=== PATIENT | female | born 1940 | race Caucasian/White ===

== ENCOUNTER 2016-08-11 16:35 | Inpatient (IN) | payer MEDICARE ==
[~2016-08-11] VITALS: Ht 167.6 cm; Wt 61.2 kg
[~2016-08-11 16:35] MED LIST: ALDACTONE25 MG PO; AMITRIPTYLINE H50 MG PO; COMBIGAN OPHT DR5 ML EACH EYE; CYMBALTA20 MG PO; DIOVAN80 MG PO; ELIQUIS2.5 MG PO; KLOR-CON M2020 MEQ PO; LASIX20 MG PO; LYRICA50 MG PO; MAGNESIUM GLUC500 M1 PO; MIRALAX17 GM PO; NIFEDIPINE ER30 MG PO; OS-CAL500 MG PO; PERCOCET 10/3251 TA1 PO; PROBIOTIC1 EAC1 PO; PROTONIX40 MG PO; TRAVATAN Z2.5 ML EACH EYE; TYLENOL W/CODEI1 TAB PO; VITAMIN B PO; VITAMIN D250000 UNIT PO; ZOCOR20 MG PO
[2016-08-11 19:36] LABS: BASOPHILS 0.1 % (0.0-2.0); EOSINOPHILS 0.4 % (0-7); HEMATOCRIT 40.1 % (36.0-48.0); HEMOGLOBIN 13.1 g/dL (12-16); IMMATURE GRANULOCYTES 0.5 % (0-5); LYMPHOCYTES 8.5 % (15-50); MCHC 32.7 g/dL (31.0-37.0); MEAN PLATELET VOLUME 8.9 fL (7.4-10.4); MONOCYTES 4.8 % (2-11); NEUTROPHILS 85.7 % (40-80); RBC 4.36 10x6/uL (4.00-5.40); RDW 13.8 % (11.5-14.5); WBC 15.6 10x3/uL (4.8-10.8)
[2016-08-11 19:42] LABS: PLATELET COUNT 236 10x3/uL (130-400)
[2016-08-11 19:43] LABS: CALCIUM 9.2 mg/dL (8.5-10.1); CREATININE - SERUM 0.9 mg/dL (0.6-1.3)
[2016-08-11 20:19] LABS: APPEARANCE CLEAR (CLEAR); BILIRUBIN NEGATIVE (NEGATIVE); COLOR YELLOW (YELLOW); GLUCOSE NEGATIVE (NEGATIVE); KETONE NEGATIVE (NEGATIVE); LEUKOCYTE ESTERASE TRACE (NEGATIVE); NITRITE POSITIVE (NEGATIVE); PROTEIN NEGATIVE (NEGATIVE); UROBILINOGEN NORMAL (NORMAL)
[2016-08-11 20:20] LABS: BACTERIA MODERATE /hpf (NONE SEEN); EPITHELIAL CELLS 0-5 /hpf (0-5); HYALINE CAST 0-5 /lpf (NONE SEEN); RED CELLS - URINE 0-5 /hpf (0-5); WHITE CELLS - URINE 0-5 /hpf (0-5)
--- NOTE | 2016-08-11 23:02 | NUR ---
RECIEVED FORM ER.ALERT,ORIENTED.SKIN WARM DRY RESP EVEN AND UNALBORED. ABD SOFT NONDISTENDED WITH BOWEL SOUNDS PRESENT. CLINTON INTACT TO LEFT SIDE OF HEAD. SLING TO LEFT ARM ON.RADIAL PULSE PRESENT.NO NUMBNESS OR TINGLING NOTED. ABLE TO MOVE FINGERS WITHOUT DIFFICULTY.BILATERAL PPP. NO NUMBNESS OR TINGLING TO LOWER EXTRIMITIES. MOVES FEET AND TOES WITHOUT DIFFICUTLY. COMPLAINTS OF PAIN UPON MOVEMENT TO UPPER AND LOWER EXTRIEITES..SL TO RIGHT FOREARM WITHOUT REDDNESS OR EDEMA.OPEN AREA NOTE TO LEFT LOWER SKIN. NO DRAINAGE NOTED. DRSG INTACT.CL IN REACH
[2016-08-12 00:25] VITALS: BP 101/56; BMI 21.8
--- NOTE | 2016-08-12 02:40 | NUR ---
RESTING QUIETLY. NO DISTRESS NOTED.
--- NOTE | 2016-08-12 04:53 | NUR ---
16 FR OSCAR PLACED AT REQUEST WITH CLEAR YELLOW URINE NOTED.,
[2016-08-12 06:32] LABS: BASOPHILS 0.1 % (0.0-2.0); EOSINOPHILS 0 % (0-7); HEMATOCRIT 37.5 % (36.0-48.0); HEMOGLOBIN 12.4 g/dL (12-16); IMMATURE GRANULOCYTES 0.3 % (0-5); LYMPHOCYTES 9.8 % (15-50); MCH 30.4 pg (26.0-34.0); MCHC 33.1 g/dL (31.0-37.0); MCV 91.9 fL (80.0-100.0); MEAN PLATELET VOLUME 9.2 fL (7.4-10.4); MONOCYTES 8.2 % (2-11); NEUTROPHILS 81.6 % (40-80); PLATELET COUNT 235 10x3/uL (130-400); RBC 4.08 10x6/uL (4.00-5.40); RDW 13.9 % (11.5-14.5)
[2016-08-12 06:43] LABS: WBC 10.7 10x3/uL (4.8-10.8)
[2016-08-12 06:48] LABS: CALCIUM 8.9 mg/dL (8.5-10.1); CARBON DIOXIDE 33.1 mmol/L (21.0-32.0); POTASSIUM - SERUM 3.1 mmol/L (3.5-5.1)
--- NOTE | 2016-08-12 07:53 | NUR ---
PATIENT AWAKE, ALERT, ORIENTED TIMES 3, SHE C/O PAIN "ALL OF LEFT SIDE". PATIENT REQUESTED ICE CHIPS, ICE CHIPS PROVIDED. CLIPS INTACT TO LEFT SIDE OF HEAD. WILL PROVIDE PAIN MEDS SOON ABLE.
--- NOTE | 2016-08-12 10:05 | NUR ---
Patient Name: KENAN DELEON Admission Status: ER Accout number: [id number] Admission Date: 08-11-2016 : 1940 Admission Diagnosis: Attending: HARDEEP Current LOS: 1 Anticipated DC Date: 08-17-2016 Planned Disposition: Home Primary Insurance: [facility] Discharge Planning Comments: CM MET WITH PATIENT REGARDING D/C NEEDS AND PLANS. PATIENT STATED SHE LIVES ALONE AND HAS A FRIEND (JUAN C) THAT CHECKS ON HER DAILY. PATIENTS FRIEND WILL BE THE ONE TO DRIVE HER HOME AT DISCHARGE. PATIENT IS INDEPENDENT WITH HER CARE AND HAS A WALKER, CANE, AND BUILT IN SHOWER CHAIR AT HOME. PATIENT HAS NO STEPS TO ENTER HOME AND 1 FLIGHT OF STAIRS W/RAILS GOING UPSTAIRS TO HER BEDROOM. PATIENTS PCP IS DR. ALVA AND PHARMACY IS [facility]. PATIENT HAS NEVER HAD HOME HEALTH. PATIENT IS OK WITH HOME HEALTH IF NEEDED AT DISCHARGE. CM WILL CONTINUE TO FOLLOW PATIENT WITH D/C NEEDS AND PLANS. PCP DR. ALVA [facility] [phone] JUAN C (FRIEND) [phone] Ladler: Clementina Phan Is the patient Alert and Oriented? Yes 0 * How many steps to enter\exit or inside your home? 1 FLIGHT 0 * PCP DR. ALVA 0 * Pharmacy [facility] 0 * Preadmission Environment Home Alone 0 * ADLs Independent 0 * Equipment Walker 0 * Other Equipment BUILT IN SHOWER CHAIR 0 * List name and contact numbers for known caregivers / representatives who currently or will assist patient after discharge: JUAN C Brandon (FRIEND) [phone] * Community resources currently utilized None 0 * Additional services required to return to the preadmission environment? Yes 0 * Can the patient safely return to the preadmission environment? Yes 0 * Has this patient been hospitalized within the prior 30 days at any hospital? No 0 Grand Total: 0
[2016-08-12 11:02] LABS: BASOPHILS 0.1 % (0.0-2.0); EOSINOPHILS 0 % (0-7); HEMATOCRIT 41.1 % (36.0-48.0); HEMOGLOBIN 13.6 g/dL (12-16); IMMATURE GRANULOCYTES 0.2 % (0-5); LYMPHOCYTES 7.7 % (15-50); MCH 30.5 pg (26.0-34.0); MCHC 33.1 g/dL (31.0-37.0); MCV 92.2 fL (80.0-100.0); MONOCYTES 7.5 % (2-11); NEUTROPHILS 84.5 % (40-80); PLATELET COUNT 189 10x3/uL (130-400); RBC 4.46 10x6/uL (4.00-5.40); WBC 11.9 10x3/uL (4.8-10.8)
[2016-08-12 11:44] VITALS: Ht 167.6 cm; Wt 61.2 kg
--- NOTE | 2016-08-12 12:45 | NUR ---
PLACED POSY ALARM UNDER PATIENT, ASSISTED PATIENT UP IN BED.
--- NOTE | 2016-08-12 12:57 | NUR ---
PATIENT C/O PAIN IN ALL OF LEFT SIDE, RATES IT 03/16. TYELNOL 3 GIVEN PO NOW.
--- NOTE | 2016-08-12 13:00 | NUR ---
ASSISTED PATIENT UP IN BED AND HELPED PLACE HER MORE IN THE CENTER. PATIENT'S FRIEND AT BEDSIDE.
--- NOTE | 2016-08-12 14:21 | NUR ---
PATIENT C/O LEFT SHOULDER PAIN AND REQUESTS SOMETHING MORE FOR PAIN. RATES PAIN 9/10.
--- NOTE | 2016-08-12 15:39 | NUR ---
WOUND CARE CONSULT: NOTED WOUND TO LEFT BUNDY. PT STATES SHE SCRAPED IT DURING A FALL. 3CM X 2.5CM X SCAB. CURRENTLY COVERED WITH TELFA AND SECURED WITH TAPE. RECOMMEND CONTINUING THIS. THERE IS NO DRAINAGE, REDNESS, EDEMA OR ODOR. WILL CONTINUE TO MONITOR.
--- NOTE | 2016-08-12 15:45 | NUR ---
PATIENT BACK FROM CT PELVIS, SHE IS VERY TEARFUL AND SHE SAYS SHE IS SCARED. SAT AND TALKED WITH HER FOR A MINUTE.
--- NOTE | 2016-08-12 16:51 | NUR ---
PATIENT C/O PAIN, RATES IT 8/10, LEFT SHOULDER. RECEIVED TYLENOL #3.
--- NOTE | 2016-08-12 17:20 | NUR ---
PATIENT C/O PAIN, BUT IT IS LESS.
[2016-08-12 19:00] VITALS: BP 127/61
--- NOTE | 2016-08-12 23:26 | NUR ---
PATIENT OBSERVED VERY CONFUSED. OXYGEN NOT IN PLACE. O2 SAT 79% ON ROOM AIR. NASAL CANNULA PUT BACK IN PLACE. O2 SAT 95% AT THIS TIME. REQUESTING THAT HER CHILDREN BE BROUGHT TO HER ROOM IMMEDIATELY. ATTEMPTED TO REORIENT WITHOUT SUCCESS. BED ALARM ON. CALL LIGHT IN REACH.
[2016-08-13] VITALS: BP 165/92
--- NOTE | 2016-08-13 03:49 | NUR ---
PATIENT SUPINE IN BED. HOB 20 DEGREES. AWAKE AND ALERT BUT CONFUSED. PATIENT SEEMS SO BE HALLUCINATING AND IS VERY ANXIOUS. IV TO RIGHT FA S/L WITH NO REDNESS OR SWELLING. SLING TO LEFT SHOULDER. O2 @ 2L VIA NC. OSCAR DRAINING TO GRAVITY. SRX2. BED LOW. CALL LIGHT WITHIN REACH.
[2016-08-13 04:00] VITALS: BP 117/58
[2016-08-13 07:49] VITALS: BP 122/57
--- NOTE | 2016-08-13 07:49 | NUR ---
AWAKE AND ALERT. ORIENTED TO SELF BUT IS TALKING SOMEWHAT CRAZY. REPORTS PAIN AT LEVEL 10. GIVEN ONE TYLENOL #3 FOR SAME. WILL MONITOR. LUNGS ARE CLEAR BILATERALLY, NO COUGH NOTED. SKIN IS INTACT WITHOUT REDNESS EXCEPT WOUND TO LEFT BUNDY WHICH HAS A DRY INTACT DRESSING IN PLACE. OSCAR PATENT WITH CLEAR YELLOW URINE. REPOSITIONED IN BED FOR COMFORT. WILL MONITOR.
[2016-08-13 09:43] LABS: BASOPHILS 0.1 % (0.0-2.0); EOSINOPHILS 1.2 % (0-7); IMMATURE GRANULOCYTES 0.2 % (0-5); LYMPHOCYTES 11.6 % (15-50); MCH 30.3 pg (26.0-34.0); MCHC 33.5 g/dL (31.0-37.0); MCV 90.4 fL (80.0-100.0); MEAN PLATELET VOLUME 8.5 fL (7.4-10.4); MONOCYTES 7.5 % (2-11); NEUTROPHILS 79.4 % (40-80); RDW 13.7 % (11.5-14.5); WBC 9.9 10x3/uL (4.8-10.8)
[2016-08-13 09:44] LABS: HEMATOCRIT 31.9 % (36.0-48.0); HEMOGLOBIN 10.7 g/dL (12-16); PLATELET COUNT 150 10x3/uL (130-400); RBC 3.53 10x6/uL (4.00-5.40)
[2016-08-13 09:51] LABS: CALCIUM 8.7 mg/dL (8.5-10.1); CARBON DIOXIDE 35.8 mmol/L (21.0-32.0); CHLORIDE - SERUM 95 mmol/L (98-107); GLUCOSE 142 mg/dL (74-106); SODIUM 133 mmol/L (136-145)
[2016-08-13 09:59] LABS: CALC OSMOLALITY 269 mosm/kg (275-300); CREATININE - SERUM 0.7 mg/dL (0.6-1.3); UREA NITROGEN 17 mg/dL (7-18); eGFR NON AFRICAN AMERICAN 86 mL/min (90-120)
--- NOTE | 2016-08-13 10:00 | NUR ---
GIVEN BED BATH PER STAFF. ALLOWED LAB TO DRAW BLOOD.
[2016-08-13 10:06] LABS: POTASSIUM - SERUM 2.3 mmol/L (3.5-5.1)
[2016-08-13 12:22] VITALS: BP 125/65
--- NOTE | 2016-08-13 15:59 | NUR ---
REQUESTED AND GIVEN ONE HYDROCODONE PO FOR C/O LEFT HIP PAIN LEVEL 9. WILL MONITOR.
[2016-08-13 16:00] VITALS: BP 122/68
--- NOTE | 2016-08-13 16:36 | NUR ---
DRESSING CHANGED TO LEFT BUNDY AREA. NO SIGNS OF INFECTION NOTED. DENIES NEEDS.
--- NOTE | 2016-08-13 18:28 | NUR ---
ATE ABOUT HALF OF SUPPER. NO C/O AT THIS TIME. DENIES NEEDS. NO CHANGES NOTED.
--- NOTE | 2016-08-13 19:15 | NUR ---
PATIENT IN SEMI FOWLERS POSITION. BROUGHT PATIENT WATER PER HER REQUEST.
[2016-08-13 20:43] VITALS: BP 114/61
--- NOTE | 2016-08-14 06:00 | NUR ---
ROUTINE MEDS GIVEN PER MAR, TAYLER WELL, LAB IN ROOM , CL IN REACH
[2016-08-14 06:19] LABS: BASOPHILS 0.1 % (0.0-2.0); EOSINOPHILS 2.2 % (0-7); HEMATOCRIT 31.8 % (36.0-48.0); HEMOGLOBIN 10.7 g/dL (12-16); IMMATURE GRANULOCYTES 0.1 % (0-5); LYMPHOCYTES 18.2 % (15-50); MCH 30.5 pg (26.0-34.0); MCHC 33.6 g/dL (31.0-37.0); MCV 90.6 fL (80.0-100.0); MEAN PLATELET VOLUME 8.7 fL (7.4-10.4); MONOCYTES 10.5 % (2-11); NEUTROPHILS 68.9 % (40-80); PLATELET COUNT 158 10x3/uL (130-400); RBC 3.51 10x6/uL (4.00-5.40); RDW 13.7 % (11.5-14.5)
[2016-08-14 06:28] LABS: CALCIUM 8.6 mg/dL (8.5-10.1); CARBON DIOXIDE 34.8 mmol/L (21.0-32.0); CHLORIDE - SERUM 96 mmol/L (98-107); GLUCOSE 114 mg/dL (74-106); SODIUM 135 mmol/L (136-145)
[2016-08-14 06:29] LABS: CALC OSMOLALITY 269 mosm/kg (275-300); CREATININE - SERUM 0.5 mg/dL (0.6-1.3); UREA NITROGEN 9 mg/dL (7-18); eGFR NON AFRICAN AMERICAN > 90 mL/min (90-120)
--- NOTE | 2016-08-14 07:53 | NUR ---
AWAKE AND ALERT. ORIENTED X3. NO C/O AT THIS TIME. DENIES NEEDS. LUNGS ARE CLEAR BILATERALLY, NO COUGH NOTED. SKIN IS INTACT WITHOUT REDNESS. OSCAR PATENT WITH CLEAR YELLOW URINE. IV TO RIGHT FOREARM PATNET WITHOUT REDNESS AT INSERTION SITE. DENIES NEEDS
[2016-08-14 08:04] VITALS: BP 122/55
--- NOTE | 2016-08-14 09:20 | NUR ---
ATE ALMOST ALL OF BREAKFAST. REQUESTED AND GIVEN ONE HYDROCODONE PO FOR C/O LEFT SHOULDER PAIN LEVEL 9. WILL MONITOR.
[2016-08-14 11:56] VITALS: BP 113/55
--- NOTE | 2016-08-14 13:24 | NUR ---
SPOKE WITH DR. JOHNS RE HEADACHE. ONE TIME ORDER RECEIVED FOR DEMEROL. PATIENT C/O HEADACHE LEVEL 10. GIVEN MEDS PER ORDERS. WILL MONITOR.
[2016-08-14 15:59] VITALS: BP 114/46
[2016-08-14 19:00] VITALS: BP 124/50
--- NOTE | 2016-08-14 19:07 | NUR ---
ATE MOST OF SUPPER. FAMILY AT BEDSIDE. NO CHANGES NOTED. DENIES NEEDS.
--- NOTE | 2016-08-15 02:30 | NUR ---
PT IN BED WITH NO NEEDS AT THIS TIME. SCD'S ON. O2 @ 2 PER NASAL CANNULA. LEFT FOREARM IV PATENT AND FLUIDS ARE RUNNING PER ORDER. LEFT HUMERUS IS FRACTURED. RADIAL PULSE PRESENT. SIDE RAILS ARE UP X 2. BED IS LOW. CALL LIGHT IS IN REACH.
[2016-08-15 04:00] VITALS: BP 147/38
[2016-08-15 05:02] LABS: BASOPHILS 0.1 % (0.0-2.0); HEMATOCRIT 32.8 % (36.0-48.0); HEMOGLOBIN 10.9 g/dL (12-16); IMMATURE GRANULOCYTES 0.3 % (0-5); LYMPHOCYTES 16.5 % (15-50); MCH 30.2 pg (26.0-34.0); MCHC 33.2 g/dL (31.0-37.0); MCV 90.9 fL (80.0-100.0); MEAN PLATELET VOLUME 9.2 fL (7.4-10.4); MONOCYTES 11.6 % (2-11); NEUTROPHILS 67.5 % (40-80); PLATELET COUNT 184 10x3/uL (130-400); RBC 3.61 10x6/uL (4.00-5.40); RDW 13.5 % (11.5-14.5); WBC 7.7 10x3/uL (4.8-10.8)
[2016-08-15 05:10] LABS: CALC OSMOLALITY 268 mosm/kg (275-300); CALCIUM 8.8 mg/dL (8.5-10.1); CARBON DIOXIDE 34.8 mmol/L (21.0-32.0); CHLORIDE - SERUM 97 mmol/L (98-107); CREATININE - SERUM 0.5 mg/dL (0.6-1.3); GLUCOSE 112 mg/dL (74-106); POTASSIUM - SERUM 3.1 mmol/L (3.5-5.1); SODIUM 135 mmol/L (136-145); UREA NITROGEN 8 mg/dL (7-18); eGFR NON AFRICAN AMERICAN > 90 mL/min (90-120)
[2016-08-15 08:07] VITALS: BP 163/73
--- NOTE | 2016-08-15 09:00 | NUR ---
ASSESSMENT PER FLOW SHEET.PT WITHOUT DISTRESS.SLING IN PLACE TO LEFT ARM.DENIES NEEDS.NPO FOR SURGERY TODAY ORDERED.FALL PRECAUTIONS IN PLACE.
[2016-08-15 12:09] VITALS: BP 139/83
--- NOTE | 2016-08-15 14:38 | NUR ---
NUTRITION MONITORING & EVAL CHART REVIEWED. PT CURRENTLY NPO FOR SURGERY. WILL PROVIDE DIET WHEN RESUMED, MONITOR PO INTAKE, PT PROGRESS. RD FOLLOWING
--- NOTE | 2016-08-15 16:31 | NUR ---
TO OR VIA BED
[2016-08-15 16:37] VITALS: BP 160/70
--- NOTE | 2016-08-15 18:08 | NUR ---
1715 LEFT ARM RED AND BLUE BRUISING NOTED, LEFT LOWER LEG WITH BANDAGE, ROM.
--- NOTE | 2016-08-15 18:39 | NUR ---
CAME WITH OSCAR CATHETER FROM FLOOR. ANESTHESIA CLAIMED WHAT WAS IN THE BAG. 1000ML
[2016-08-15 19:02] VITALS: BP 152/76
--- NOTE | 2016-08-15 19:04 | NUR ---
BACK FROM OR VIA BED,WITHOUT DISTRESS.DRESSING LEFT SHOULDER CLEAN,DRY AND INTACT.
[2016-08-16] VITALS: BP 138/75
--- NOTE | 2016-08-16 02:10 | NUR ---
PT IN BED WITH NO NEEDS. IV TO LEFT FOREARM PATENT AND FLUIDS ARE RUNNING PER ORDER. DRESSING TO LEFT ARM C/D/I. SLING ON. SCD'S ON. O2 @ 2 PER NASAL CANNULA. RADIAL PULSE PRESENT. SIDE RAILS ARE UP X 2. BED IS LOW. CALL LIGHT IS IN REACH.
[2016-08-16 04:00] VITALS: BP 163/86
[2016-08-16 06:36] LABS: BASOPHILS 0.2 % (0.0-2.0); EOSINOPHILS 1.5 % (0-7); HEMATOCRIT 32.2 % (36.0-48.0); HEMOGLOBIN 10.7 g/dL (12-16); IMMATURE GRANULOCYTES 0.2 % (0-5); LYMPHOCYTES 10.8 % (15-50); MCH 29.8 pg (26.0-34.0); MCHC 33.2 g/dL (31.0-37.0); MCV 89.7 fL (80.0-100.0); MEAN PLATELET VOLUME 8.7 fL (7.4-10.4); MONOCYTES 8.5 % (2-11); NEUTROPHILS 78.8 % (40-80); PLATELET COUNT 180 10x3/uL (130-400); RBC 3.59 10x6/uL (4.00-5.40); RDW 13.4 % (11.5-14.5); WBC 9.2 10x3/uL (4.8-10.8)
[2016-08-16 06:52] LABS: CALC OSMOLALITY 272 mosm/kg (275-300); CALCIUM 8.4 mg/dL (8.5-10.1); CARBON DIOXIDE 25.9 mmol/L (21.0-32.0); CHLORIDE - SERUM 101 mmol/L (98-107); CREATININE - SERUM 0.5 mg/dL (0.6-1.3); GLUCOSE 89 mg/dL (74-106); POTASSIUM - SERUM 3.1 mmol/L (3.5-5.1); SODIUM 138 mmol/L (136-145); UREA NITROGEN 8 mg/dL (7-18); eGFR NON AFRICAN AMERICAN > 90 mL/min (90-120)
[2016-08-16 08:28] VITALS: BP 149/92
[2016-08-16 11:49] VITALS: BP 117/72
[2016-08-16 15:45] VITALS: BP 165/91
[2016-08-16 19:00] VITALS: BP 176/80
--- NOTE | 2016-08-16 19:45 | NUR ---
PATIENT RESTING IN BED. NO SIGNS OF DISTRESS NOTED. FAMILY PRESENT. DENIES ANY NEEDS AT THIS TIME. BED LOW. CALL LIGHT IN REACH.
[2016-08-17] VITALS: BP 153/70
[2016-08-17 04:00] VITALS: BP 150/81
--- NOTE | 2016-08-17 04:39 | NUR ---
PT IS IN BED WITH NO DISTRESS. SIDE RAILS ARE UP X 2. BED IS LOW. CALL LIGHT IS IN REACH.
[2016-08-17 05:51] LABS: BASOPHILS 0.2 % (0.0-2.0); EOSINOPHILS 3.5 % (0-7); HEMATOCRIT 31.2 % (36.0-48.0); HEMOGLOBIN 10.6 g/dL (12-16); IMMATURE GRANULOCYTES 0.2 % (0-5); LYMPHOCYTES 16.8 % (15-50); MCH 30.3 pg (26.0-34.0); MCV 89.1 fL (80.0-100.0); MEAN PLATELET VOLUME 9.1 fL (7.4-10.4); MONOCYTES 11.2 % (2-11); NEUTROPHILS 68.1 % (40-80); PLATELET COUNT 185 10x3/uL (130-400); RDW 13.8 % (11.5-14.5); WBC 8.1 10x3/uL (4.8-10.8)
[2016-08-17 06:08] LABS: CALC OSMOLALITY 270 mosm/kg (275-300); CHLORIDE - SERUM 99 mmol/L (98-107); CREATININE - SERUM 0.4 mg/dL (0.6-1.3); GLUCOSE 117 mg/dL (74-106); POTASSIUM - SERUM 3.4 mmol/L (3.5-5.1); SODIUM 136 mmol/L (136-145); UREA NITROGEN 8 mg/dL (7-18); eGFR NON AFRICAN AMERICAN > 90 mL/min (90-120)
--- NOTE | 2016-08-17 08:26 | NUR ---
PT SEEN AND ASSESSED. COMPLAINTS OF PAIN GENERALIZED-TYL #3 GIVEN PER REQUEST. LEFT ARM IN SLING WITH DRESSING CLEAN DRY AND INTACT. FINGERS WARM AND PINK. CLINTON NOTED TO LEFT SIDE OF HEAD INTACT AND NO DRAINAGE NOTED. OSCAR DRAINING YELLOW URINE-NO SKIN BREAKDOWN NOTED BUT WILL TURN OFTEN. SCD ON BILAT WITH NIRMALA MAT ALARM ON FOR SAFETY. CALL LIGHT IN PLACE
[2016-08-17 08:48] VITALS: BP 155/91
--- NOTE | 2016-08-17 10:23 | NUR ---
REASSESSMENT: WOUND/SKIN TEAR TO LEFT BUNDY IS IMPROVING. MEASUREMENTS: 2.5CM X 2CM X SCAB NO DRAINAGE, ODOR OR EDEMA NOTED. WILL MONITOR NEEDED.
[2016-08-17] MEDS ORDERED: ELIQUIS2.5 MG PO (12:38)
--- NOTE | 2016-08-17 13:52 | NUR ---
PATIENT SEEN AT BEDSIDE FOR THERAPEUTIC EXERCISE AND BED MOBILITY. PATIENT ABLE TO PERFORM SUPINE TO SIT WITH MOD A. PATIENT IS NWB ON L LE BUT STOOD AT BEDSIDE WITH MOD A X 2, BEARING ALL WEIGHT ON HER RIGHT SIDE. PATIENT HAD GOOD BALANCE. PATIENT IS NOT ABLE TO AMBULATE AT THIS TIME DUE TO HER BEING NWB ON L LE, FROM PELVIC FX, AND ON L UE FROM RECENT HUMERAL ORIF. PATIENT ABLE TO PERFORM PENDULUM EXERCISES IN STANDING AND SITTING. PATIENT WILL NEED REHAB PLACEMENT TO INCREASE STRENGTH AND INDEPENDENCE IN TRANSFERS. PATIENT'S REHAB POTENTIAL IS GOOD. ROSIO COLMENARES, PT, DPT
[2016-08-17 13:55] VITALS: BP 120/58
[2016-08-17 16:05] VITALS: BP 151/87
--- NOTE | 2016-08-17 17:43 | OP ---
PATIENT NAME: KENAN DELEON MEDICAL RECORD: [id number] :38 LOCATION:D.MS [id number] ADMISSION DATE:08/11/16 SURGEON: JJ LLAMAS MD DATE OF OPERATION: 08/15/2016 PREOPERATIVE DIAGNOSIS: Proximal humerus fracture, left shoulder. POSTOPERATIVE DIAGNOSIS: Proximal humerus fracture, left shoulder. PROCEDURE: Open reduction internal fixation of left proximal humerus fracture. SURGEON: Jj Llamas MD ANESTHESIA: General. INTRAOPERATIVE COMPLICATIONS: None. SUMMARY OF PATHOLOGIC FINDINGS: The patient was found to have a displaced proximal humerus at the surgical neck of the humerus. This was fixed with the AxSOS 3 plating system from [employer]. OPERATIVE SUMMARY IN DETAIL: After obtaining the appropriate preoperative orthopedic surgery consent as well as anesthetic consultation, evaluation and clearance, the patient was brought to the operating room and placed on the operating table in supine position. After general endotracheal anesthesia was administered, the patient was placed in the beach chair position. All pressure points were well padded. She was held firmly to the operating table using the vacuum pack suction system. Left upper extremity and shoulder were then prepped and draped in a routine sterile fashion. The arm was held to [employer] arm holding device. Deltopectoral incision was taken down to the level of the fracture. Fracture was reduced under fluoroscopic guidance and then the plate as described, 3-hole humeral plate, was placed in a serial and sequential drill and fill fashion with a combination of both compression screws as well as locking screws. Realtime fluoroscopy was used to determine if all screws were in appropriate position and they were indeed. Having completed this, the wound was irrigated and the incision was closed with #1 Vicryl followed by 2-0 Vicryl and skin aubrey. Sterile dressings were applied. The patient was awakened, taken to recovery room in stable condition. All final needle and sponge counts were correct. TRANSINT:[id number] Voice Confirmation ID: [id number] DOCUMENT ID: [id number] JJ LLAMAS MD at 1743 CC: [id number] DICTATION DATE: 08/15/161825 RESEARCH RN SPEC: [id number] ADM IN [place] [id number] [place] [address]
[2016-08-17 21:11] VITALS: BP 122/62
--- NOTE | 2016-08-18 02:20 | NUR ---
RN NOTE: PT SLEEPING IN SEMI PINA'S POSITION WITH UNLABORED BREATHING. LEFT ARM IN SLING. SCD'S IN USE ON BLE. CALL LIGHT WITHIN REACH.
[2016-08-18 04:54] VITALS: BP 144/81
[2016-08-18 05:44] LABS: HEMATOCRIT 31.2 % (36.0-48.0); HEMOGLOBIN 10.3 g/dL (12-16)
--- NOTE | 2016-08-18 07:52 | NUR ---
RESTING WITHOUT DISTRESS.CALL LIGHT IN REACH
--- NOTE | 2016-08-18 08:00 | NUR ---
AWAKE AND ALERT ORIENTED X 3 LUNGS CLEAR BILAT DAY 3 POD AFER ORIF OF LEFT HUMEROUS ALSO NOTED TO HAVE NON SURGICAL PELVIC FRACTURE AND REMAINS NON WT BEARING AT THIS TIME. PT SITTING PT UP TO SIDE OF BED HOWEVER PT HAS NO ORDER FOR OOB. OSCAR PATENT TO YELLOW URINE PER GRAVITY FLOW. DRESSING NOTED TO LLL WILL MONITOR
--- NOTE | 2016-08-18 09:44 | NUR ---
CM REASSESSMENT NOTE: PATIENT REFERRAL TO [facility]. MATTHEW WAS SENT AND NON-PASRR WAS RECEIVED. COPY WAS FAXED TO [facility] AT [facility]. WAITING ON INSURANCE APPROVAL FROM [facility].
[2016-08-18 10:05] VITALS: BP 109/63
[2016-08-18 13:08] VITALS: BP 140/80
--- NOTE | 2016-08-18 16:20 | NUR ---
CM REASSESSMENT NOTE: PATIENT DISCHARGING TODAY TO [facility]BULANCE TO A SKILLED BED.
--- NOTE | 2016-08-18 17:38 | NUR ---
PT DISCHARGED VIA AMBULANCE AT THIS TIME DRESSING CHANGED PER ORDER TO LLE WELL CLINTON REMOVED X 4 TO SCALP HAS CLEAN DRESSING WITH AG APPLIED TO SURGICAL SITE TO LEFT SHOULDER. OSCAR REMAINS PATENT TO YELLOW URINE. NO ACUTE DISTRESS HAD TYLENOL #3 FOR PAIN CONTROL PRIOR TO DISCHARGE. REPORT CALLED TO [facility] SPOKE WITH MONIQUE
--- NOTE | 2016-08-19 11:11 | CN ---
PATIENT NAME:KENAN DELEON MEDICAL RECORD: [id number] : 38 LOCATION:D.MS [facility]2237 ADMIT DATE: 08/11/16 ACCOUNT: [id number] CONSULTING PHYSICIAN: SUKUMAR MASON MD REFERRING PHYSICIAN: YVONNE ALVA MD DATE OF CONSULTATION: 08/13/2016 Cardiology Consultation DIAGNOSES: 1. Preoperative evaluation, leg fracture. 2. Hypertension. 3. Palpitations. HISTORY OF PRESENT ILLNESS: Mrs. Deleon is only followed by us for hypertension and palpitations. She had an echocardiogram within the last year that is normal. She has had no signs or symptoms of ischemic heart disease. From the standpoint of hypertension, she is on Diovan and Lasix. Her palpitations have resolved. She as well as has hyperlipidemia, for which she is on Zocor. She has chronic lower extremity swelling, which she is on Lasix and Zaroxolyn; this is felt to be secondary to venous insufficiency and not from a cardiac etiology. Last echo showed no significant valvular heart disease and no pulmonary hypertension. PHYSICAL EXAMINATION: GENERAL APPEARANCE: Well-nourished, well-developed, appears stated age. Level of distress, comfortable. PSYCHIATRIC: Mental status, alert, normal affect. Orientation, oriented to time, place and person. EYES: Lids and conjunctiva, noninjected. No discharge, no pallor. ENT: Lips, teeth, gums, normal dentition. Oropharynx, no cyanosis, no pallor. NECK: Carotid arteries, bilateral normal upstroke, no bruits, no thrills. JUGULAR VEINS: No jugular venous pressure or distention. CERVICAL LYMPH NODES: Nontender, nonenlarged. THYROID: Not enlarged. Nontender. No nodules. LUNGS: Respiratory effort, unlabored. CHEST: Normal curvature. No thoracic deformity. No chest wall tenderness. Percussion, resonant. Auscultation, clear. No wheezes, no rales, no rhonchi. CARDIOVASCULAR: Precordial exam, nondisplaced. No heaves or pericardial thrills. Rate and rhythm, regular. Heart sounds, normal S1, normal S2. No S3, no gallop, no rub. Systolic murmur, not heard. Diastolic murmur, not heard. EXTREMITIES: No cyanosis, no edema. Peripheral pulses, full and equal in all extremities, except as noted. No bruits appreciated. ABDOMEN: Soft, nondistended. Normal aorta. No bruit. Nontender. No masses. Liver, nontender, no hepatomegaly. Spleen, nontender, no splenomegaly. MUSCULOSKELETAL: No joint tenderness. No joint swelling. No erythema. NEUROLOGICAL: Normal gait, normal strength, normal tone. SKIN: Warm and dry. REVIEW OF SYSTEMS: The patient reports easy bruising but reports no swollen glands. The patient reports no fever, no night sweats, no significant weight gain, no significant weight loss. No significant exercise tolerance. The patient reports no dry eyes, no irritation, no vision change. Patient reports no difficulty hearing and no ear pain. Patient reports no frequent nose bleeds or nose and sinus problems. Patient reports on arm pain on exertion. No CONSULT REPORT [id number] KENAN DELEON shortness of breath while lying down. No history of heart murmur. Patient reports no cough, no wheezing or coughing up blood. Patient reports no abdominal pain, no vomiting. Normal appetite. No diarrhea and not vomiting blood. No nausea and no constipation. Patient reports no incontinence. No difficulty urinating. No hematuria. No increased frequency. Patient reports no muscle aches. No weakness, no arthralgias, no back pain. No swelling of the extremities. Patient reports no abnormal mole, no jaundice, no rashes. Reports no loss of consciousness. No weakness and no numbness. No seizures, dizziness, or headaches. The patient reports no depression, no sleep disturbance, feeling safe in a relationship and no alcohol abuse. Patient reports on fatigue. Reports no runny nose or sinus pressure. No itching, no hives, and no frequent sneezing. OVERALL IMPRESSION: 1. Hypertension, well controlled on Diovan. 2. Lower extremity edema, chronic, not cardiac in etiology treatment with Lasix and Zaroxolyn. At this time, she is low risk from a cardiovascular standpoint for operative repair. No other cardiovascular workup or treatment is necessary. TRANSINT:[id number] Voice Confirmation ID: [id number] DOCUMENT ID: [id number] SUKUMAR MASON MD at 1111 CC: [id number] DICTATION DATE: 08/13/16 1110 GARD[place] FLORIST: 08/13/16 1133 DIS IN 08/18/16 [facility] [address] [place] [address]
== END 2016-08-18 17:53 | DRG 493 ==
LOC: D.ER 16:35 → D.MS 19:12
PROVIDERS: Emergency Medicine Emergency Medical Services; Orthopaedic Surgery; ADMIT Family Medicine
PROC: 0HQ0XZZ Repair Scalp Skin, External Approach (ICD-10-PCS; principal; 2016-08-11)
PROC: 0PSD04Z Reposition Left Humeral Head with Internal Fixation Device, Open Approach (ICD-10-PCS; 2016-08-15)
DX: S42.292A Other displaced fracture of upper end of left humerus, initial encounter for closed fracture (principal); S32.592A Other specified fracture of left pubis, initial encounter for closed fracture; N39.0 Urinary tract infection, site not specified; F05 Delirium due to known physiological condition; I48.91 Unspecified atrial fibrillation; I50.9 Heart failure, unspecified; R00.2 Palpitations; S01.01XA Laceration without foreign body of scalp, initial encounter; I95.1 Orthostatic hypotension; W19.XXXA Unspecified fall, initial encounter; E86.0 Dehydration; I10 Essential (primary) hypertension; E78.5 Hyperlipidemia, unspecified; R60.9 Edema, unspecified

== ENCOUNTER 2016-12-29 12:43 | Emergency (ER) | payer MEDICARE ==
[2016-08-12 11:44] VITALS: BMI 21.7
[2016-12-29 14:32] LABS: BASOPHILS 0.6 % (0-2); EOSINOPHILS 3.7 % (0-7); HEMATOCRIT 40.4 % (36.0-48.0); IMMATURE GRANULOCYTES 0.2 % (0-5); MCH 30.1 pg (26.0-34.0); MCHC 32.2 g/dL (31.0-37.0); MCV 93.5 fL (80.0-100.0); MEAN PLATELET VOLUME 8.9 fL (7.4-10.4); MONOCYTES 7.2 % (2-11); NEUTROPHILS 54.3 % (40-80); PLATELET COUNT 182 10x3/uL (130-400); RBC 4.32 10x6/uL (4.00-5.40); RDW 13.3 % (11.5-14.5); WBC 5.1 10x3/uL (4.8-10.8)
[2016-12-29 14:43] LABS: ALBUMIN 3.6 g/dL (3.4-5.0); ALKALINE PHOSPHATASE 114 U/L (46-116); ALT (SGPT) 32 U/L (10-68); BILIRUBIN - TOTAL 0.38 mg/dL (0.2-1.3); CALC OSMOLALITY 282 mosm/kg (275-300); CALCIUM 9.2 mg/dL (8.5-10.1); CARBON DIOXIDE 33.9 mmol/L (21.0-32.0); CHLORIDE - SERUM 103 mmol/L (98-107); CREATININE - SERUM 0.7 mg/dL (0.6-1.3); GLUCOSE 88 mg/dL (74-106); POTASSIUM - SERUM 3.3 mmol/L (3.5-5.1); PROTEIN - SERUM 7.4 g/dL (6.4-8.2); SODIUM 142 mmol/L (136-145); UREA NITROGEN 14 mg/dL (7-18); eGFR NON AFRICAN AMERICAN 86 mL/min (90-120)
== END 2016-12-29 14:57 | disposition home or self-care (01) ==
LOC: D.ER 12:43
PROVIDERS: Emergency Medicine; Nurse Practitioner Family
DX: S16.1XXA Strain of muscle, fascia and tendon at neck level, initial encounter (principal); V89.2XXA Person injured in unspecified motor-vehicle accident, traffic, initial encounter; Y93.89 Activity, other specified; Y92.89 Other specified places as the place of occurrence of the external cause; S29.012A Strain of muscle and tendon of back wall of thorax, initial encounter; M25.512 Pain in left shoulder; M62.830 Muscle spasm of back

== ENCOUNTER → 2017-10-16 11:49 | Outpatient (CLI) | payer MEDICARE ==
[2016-08-12 11:44] VITALS: BMI 21.7
== END | disposition home or self-care (01) ==
LOC: D.CT 11:30
DX: I65.23 Occlusion and stenosis of bilateral carotid arteries (principal)

== ENCOUNTER → 2018-04-05 22:29 | Outpatient (CLI) | payer MEDICARE ==
[2016-08-12 11:44] VITALS: BMI 21.7
== END | disposition home or self-care (01) ==
LOC: D.MAMMO 15:45
DX: Z12.31 Encounter for screening mammogram for malignant neoplasm of breast (principal)

== ENCOUNTER 2018-05-24 06:30 | Day surgery (SDC) | payer MEDICARE ==
[2018-05-23 09:36] LABS: HEMATOCRIT 43.3 % (36.0-48.0); HEMOGLOBIN 14.3 g/dL (12-16); MCH 30.4 pg (26.0-34.0); MCV 92.1 fL (80.0-100.0); MEAN PLATELET VOLUME 8.9 fL (7.4-10.4); RBC 4.7 10x6/uL (4.00-5.40); RDW 14.4 % (11.5-14.5); WBC 7.3 10x3/uL (4.8-10.8)
[2018-05-23 09:43] LABS: CALC OSMOLALITY 280 mosm/kg (275-300); CARBON DIOXIDE 31.9 mmol/L (21.0-32.0); CHLORIDE - SERUM 101 mmol/L (98-107); CREATININE - SERUM 0.7 mg/dL (0.6-1.3); GLUCOSE 98 mg/dL (74-106); POTASSIUM - SERUM 3.4 mmol/L (3.5-5.1); SODIUM 140 mmol/L (136-145); UREA NITROGEN 19 mg/dL (7-18); eGFR NON AFRICAN AMERICAN 85 mL/min (90-120)
[~2018-05-24] VITALS: Ht 167.6 cm; Wt 64.9 kg
--- NOTE | ~2018-05-24 | OP ---
PATIENT NAME: KENAN DELEON MEDICAL RECORD: [id number] :38 LOCATION:D.OPS ADMISSION DATE: SURGEON: JJ LLAMAS MD DATE OF OPERATION: 05/24/2018 PREOPERATIVE DIAGNOSIS: Painful hardware of the left shoulder. POSTOPERATIVE DIAGNOSIS: Painful hardware of the left shoulder. PROCEDURE: Removal of painful hardware of the left shoulder. SURGEON: Jj Llamas MD ANESTHESIA: General. INTRAOPERATIVE COMPLICATIONS: None. SUMMARY OF PATHOLOGIC FINDINGS: Essentially no pathologic findings were noted except for scarring of the subdeltoid bursa to the plate. OPERATIVE SUMMARY IN DETAIL: After obtaining the appropriate preoperative orthopedic surgery consent as well as anesthetic consultation, evaluation and clearance, the patient was brought to the operating room and placed on the operating table in supine position. After general laryngeal mask airway was administered, the patient was placed in the beach chair position. All pressure points were well padded. She was held firmly to the operating table using the vacuum pack suction system. Left upper extremity and shoulder were then prepped and draped in routine sterile fashion. Deltopectoral incision was recreated, taken down to the level of the cephalic vein, which was identified and retracted. Careful dissection was required to release the deltoid off of the plate. The plate was exposed in its entirety. Serial and sequential screw removal followed by plate removal was done with the aid of fluoroscopy. Having completed this, final x-rays were taken showing the hardware removed and sent to radiology for final review. The wound was copiously irrigated and closed with #1 Vicryl, 2-0 Vicryl, and skin aubrey. Sterile dressings were applied. The patient was awakened and taken to recovery room in stable condition. All final needle and sponge counts were correct. TRANSINT:[id number] Voice Confirmation ID: [id number] DOCUMENT ID: [id number] JJ LLAMAS MD at 1351 CC: [id number] DICTATION DATE: 05/24/18 1039 HYDRATOR: 05/24/18 1128 [facility] 05/24/18 [place] [address]
[~2018-05-24 06:30] MED LIST changes: +LUMIGAN 0.01%2.5 ML EACH EYE; +NEURONTIN 300300 MG PO; +PEPCID AC20 MG PO
[2018-05-24] MEDS ORDERED: METOPROLOL TART25 MG PO ×2 (06:55→06:56)
[2018-05-24] MEDS ORDERED: ZOLOFT100 MG PO (06:57)
[2018-05-24] MEDS ORDERED: FLUTICASONE PRO16 GM NASAL (06:57)
[2018-05-24] MEDS ORDERED: ABILIFY2 MG PO (06:58)
[2018-05-24 07:07] VITALS: BP 153/75; Ht 167.6 cm; Wt 64.9 kg
[2018-05-24] MEDS ORDERED: NORCO 10-325 TA1 TAB PO (09:23)
== END 2018-05-24 11:39 | disposition home or self-care (01) ==
LOC: D.OPS 06:30 → D.PAN 08:30 → D.OPS 11:15 → D.PAN 11:15 → D.OPS 11:39
PROVIDERS: Anesthesiology
DX: T84.84XA Pain due to internal orthopedic prosthetic devices, implants and grafts, initial encounter (principal)

== ENCOUNTER 2018-12-19 21:56 | Emergency (ER) | payer MEDICARE ==
[~2018-12-19] VITALS: Ht 167.6 cm; Wt 65.9 kg
[~2018-12-19 21:56] MED LIST changes: +ABILIFY2 MG PO; +FLUTICASONE PRO16 GM NASAL; +METOPROLOL TART25 MG PO; +NORCO 10-325 TA1 TAB PO; +ZOLOFT100 MG PO
[2018-12-19 22:09] VITALS: Ht 167.6 cm; Wt 65.9 kg
[2018-12-19 23:04] LABS: BASOPHILS 0.3 % (0-2); EOSINOPHILS 1.9 % (0-7); HEMATOCRIT 39.9 % (36.0-48.0); IMMATURE GRANULOCYTES 0.4 % (0-5); LYMPHOCYTES 20.8 % (15-50); MCH 30.4 pg (26.0-34.0); MCHC 32.6 g/dL (31.0-37.0); MCV 93.2 fL (80.0-100.0); MEAN PLATELET VOLUME 8.8 fL (7.4-10.4); MONOCYTES 7.3 % (2-11); NEUTROPHILS 69.3 % (40-80); PLATELET COUNT 178 10x3/uL (130-400); RBC 4.28 10x6/uL (4.00-5.40); RDW 14.7 % (11.5-14.5); WBC 7.3 10x3/uL (4.8-10.8)
[2018-12-19 23:15] LABS: APTT 29.2 SECONDS (22.8-39.4); INR 0.94 (0.85-1.17); PROTIME 12.1 SECONDS (11.6-15.0)
[2018-12-19 23:19] LABS: ALBUMIN 3.4 g/dL (3.4-5.0); ALKALINE PHOSPHATASE 87 U/L (46-116); ALT (SGPT) 34 U/L (10-68); BILIRUBIN - TOTAL 0.27 mg/dL (0.2-1.3); CALC OSMOLALITY 280 mosm/kg (275-300); CALCIUM 8.9 mg/dL (8.5-10.1); CARBON DIOXIDE 30.2 mmol/L (21.0-32.0); CHLORIDE - SERUM 101 mmol/L (98-107); CREATININE - SERUM 0.6 mg/dL (0.6-1.3); GLUCOSE 106 mg/dL (74-106); POTASSIUM - SERUM 3.4 mmol/L (3.5-5.1); PROTEIN - SERUM 7.1 g/dL (6.4-8.2); SODIUM 140 mmol/L (136-145); UREA NITROGEN 18 mg/dL (7-18); eGFR NON AFRICAN AMERICAN > 90 mL/min (90-120)
[2018-12-19 23:35] LABS: CKMB 2.8 U/L (0.0-3.6); CREATINE KINASE 139 UL (21-215); MAGNESIUM - SERUM 2.3 mg/dL (1.8-2.4)
[2018-12-19 23:36] LABS: TROPONIN-I < 0.017 ng/mL (0.000-0.060)
[2018-12-20] MEDS ORDERED: ROBAXIN500 MG PO (00:29)
[2018-12-20] MEDS ORDERED: EC-NAPROSYN500 MG PO (00:29)
[2018-12-20 00:47] VITALS: BP 169/87
== END 2018-12-20 00:46 | disposition home or self-care (01) ==
LOC: D.ER 21:56
PROVIDERS: Family Medicine
DX: S01.81XA Laceration without foreign body of other part of head, initial encounter (principal); W18.30XA Fall on same level, unspecified, initial encounter; Y93.89 Activity, other specified; Y92.019 Unspecified place in single-family (private) house as the place of occurrence of the external cause

== ENCOUNTER 2019-01-07 05:03 | Observation (INO) | payer MEDICARE | END 2019-01-08 17:42 | disposition home health service (06) | LOC: D.ER 05:03 → D.M3 09:44 | PROVIDERS: ADMIT Family Medicine | DX: N39.0 Urinary tract infection, site not specified (principal); I11.0 Hypertensive heart disease with heart failure; I50.9 Heart failure, unspecified; E87.6 Hypokalemia; F19.939 Other psychoactive substance use, unspecified with withdrawal, unspecified ==

== ENCOUNTER 2019-01-10 10:47 | Observation (INO) | payer MEDICARE ==
[~2019-01-10] VITALS: Ht 167.6 cm; Wt 65.9 kg
--- NOTE | ~2019-01-10 | HEMODYNAMI ---
PATIENT:KENAN DELEON MEDICAL RECORD: [id number] : 36 LOCATION[id number] ADMISSION DATE: 01/10/19 Generatedon:01/11/201910:01 Patient name: KENAN DELEON Patient #: [id number] SSN: : 1940 Date of study: 01/11/2019 Page: Of Hemodynamic Procedure Report Patient Data Patient Demographics Procedure consent was obtained First Name: KENAN Gender: Female Last Name: ADRIENNE : 1940 [facility] Initial: KARINA Age: 78 year(s) Patient #: [id number] Race: Unknown Additional ID: [id number] Contact details Address: [address] [place] [address] State: [place] City: [place] Zip code: [address] Admission Admission Data Admission Date: 01/10/2019 Admission Time: 13:47 Admit Source: Other Room #: D.2119 Height (in.): 65.75 BSA: 1.74 (m2) Height (cm.): 167 BMI: 23.67 (kg/m2) Weight (lbs.): 145.51 Weight (kg.): 66 Lab Results Lab Result Date: 01/11/2019 Lab Result Time: 0:00 Biochemistry Name Units Result Min Max BUN mg/dl 17 --(---*)-- 7 18 Creatinine mg/dl 0.5 -*(----)-- 0.6 1.3 CBC Name Units Result Min Max Hemoglobin g/dl 12.5 *-(----)-- 13.5 17.5 Procedure Procedure Types Cath Procedure Diagnostic Procedure [facility] w/Coronaries PCI Procedure Coronary Stent Coronary Stent Initial Peripheral Cath Diagnostic Procedure Rice Farmer Peripheral Procedures Four Vessel Arteriogram Procedure Description Procedure Date Procedure Date: 01/11/2019 Procedure Start Time: 9:27 Procedure End Time: 10:00 Procedure Staff Name Function Donald Vinson MD Performing Physician Michael Card RT Monitor Kait Tony RT Scrub Patt Land RN Nurse Procedure Data Cath Procedure Fluoroscopy Diagnostic fluoroscopy Total fluoroscopy Time: 9.3 time: 9.3 min min Diagnostic fluoroscopy Total fluoroscopy dose: 896 dose: 896 mGy mGy Contrast Material Contrast Material Type Amount (ml) Isovue 370 132 Entry Location Entry Primary Successful Side Size Upsize Upsize Entry Closure Succes sful Closure Location (Fr) 1 (Fr) 2 (Fr) Remarks Device Remarks Femoral Right 5 Fr 6 Fr 6 Fr Exoseal artery Long Short Estimated blood loss: 10 ml Diagnostic catheters Device Type Used For End Catheter Placement MULTIPACK 3DRC 5Fr Procedure catheter MULTIPACK JL 4.0 5Fr Procedure catheter MULTIPACK 3DRC 5Fr Procedure catheter DIAGNOSTIC MPA-2 5Fr Procedure catheter ([id number]) MULTIPACK Pigtail 5 Fr Procedure catheter Procedure Complications No complications Procedure Medications Medication Administration Route Dosage Oxygen etCO2 Nasal cannula 2 l/min Lidocaine 2% added to field 20 Heparin Flush Bag added to field 2 bags (1000units/500ml NS) Radial Cocktail added to field 1 syringe (Verapamil 2mg/Nitro 400mcg/Heparin 1500units) 0.9% NaCl I.V. 100 ml/hr Versed I.V. 1 mg Fentanyl I.V. 50 mcg Heparin Bolus I.V. 4000 units Integrilin (Bolus I.V. 6.2 ml 2mg/ml) Versed I.V. 0.5 mg Plavix P.O. 600 mg Hemodynamics Rest BSA: 1.74 (m2) HGB: 12.5 (g/dl) O2 Consumption: Estimated: 151.26 (ml/min) O2 Co nsumption indexed: Estimated:86.93 (ml/min/m) Heart Rate: 62 (bpm) Pressure Samples Time Site Value (mmHg) Purpose Heart Use Rate(bpm) 9:46 LV 157/76,25 Snapshot 59 Gradients Valve Time Site Site Mean SEP/DFP Peak To Heart Use 1 2 (mmHg) (sec/min) Peak Rate (mmHg) (bpm) Aortic 9:46 LV AO 66 Snapshots Pre Cath Intra NCS Post Cath Vital Signs Time Heart Resp SPO2 etCO2 NIBP (mmHg) Rhythm Pain Sedation Rate (ipm) (%) (mmHg) Status Level (bpm) 9:18:42 66 17 97 39.3 190/96(146) NSR 0 (11) 10(A) , No pain 9:23:11 64 12 98 26 156/75(103) NSR 0 (11) 10(A) , No pain 9:27:31 60 10 97 27.5 143/80(95) NSR 0 (11) 9(A) , No pain 9:31:49 63 11 96 28.2 129/71(92) NSR 0 (11) 9(A) , No pain 9:36:03 62 11 96 29.7 128/66(111) NSR 0 (11) 9(A) , No pain 9:40:13 62 12 98 21.5 137/78(97) NSR 0 (11) 9(A) , No pain 9:44:27 60 10 97 27.5 145/76(116) NSR 0 (11) 9(A) , No pain 9:48:43 62 11 98 29.7 150/74(125) NSR 0 (11) 9(A) , No pain 9:53:01 61 11 99 17.8 144/75(108) NSR 0 (11) 10(A) , No pain 9:58:21 62 13 99 20.8 173/83(105) NSR 0 (11) 10(A) , No pain Medications Time Medication Route Dose Verified Delivered Reason Note s Effectiveness by by 9:21:46 Oxygen etCO2 2 l/min Donald Beltre used for Nasal [facility] Joni Land RN procedure cannula 9:21:53 Lidocaine 2% added 20ml Donald Bennett for local to vial [facility] anesthetic field MD DELATORRE 9:21:59 Heparin Flush added 2 bags Donald Bennett used for Bag to [facility] procedure (1000units/500ml field MD DELATORRE NS) 9:22:06 Radial Cocktail added 1 Donald Bennett for (Verapamil to syringe [facility] vasodilation 2mg/Nitro field MD DELATORRE 400mcg/Heparin 1500units) 9:22:16 0.9% NaCl I.V. 100 Donald Beltre Per physician ml/hr [facility] Joni Land RN, MD 9:23:32 Versed I.V. 1 mg Donald Beltre for sedation [facility] Joni Land RN, MD 9:23:38 Fentanyl I.V. 50 mcg Donald Beltre for sedation [facility] Joni [facility] RN, MD 9:31:36 Versed I.V. 0.5 mg Donald Beltre for sedation [facility] Joni [facility] RN, MD 9:48:22 Heparin Bolus I.V. 4000 Donald Beltre for veri fied units [facility] Joni Land RN anticoagulation with dr MD saldivar 9:49:49 Integrilin I.V. 6.2 ml Donald Beltre for wast ed (Bolus 2mg/ml) [facility] Joni Land RN antiplatelet 3.8 ml MD therapy of vial 9:55:02 Plavix P.O. [address] [facility] Joni Land RN antiplatelet therapy Procedure Log Time Note 8:48:21 Diagnostic Cath Status : Elective 8:48:42 Admit Source: Other 8:48:45 Patient Height : 65.75 inches 8:48:49 Patient Weight : 145.51 lbs 8:49:38 Lab Result : Creatinine 0.5 mg/dl 8:49:38 Lab Result : BUN 17 mg/dl 8:49:38 Lab Result : Hemoglobin 12.5 g/dl 8:49:42 Michael Card RT(R) sent for patient. Start room use. 8:49:43 Time tracking: Regular hours (M-F 7:00 - 5:00) 8:49:47 Plan of Care:Hemodynamics will remain stable., Cardiac rhythm will remain stable., Comfort level will be maintained., Respiratory function will remain adequate., Patient/ family verbilizes understanding of procedure., Procedure tolerated without complication., Recovers from procedure without complications.. 9:12:50 Patient received from Med II to CCL 2 Alert and oriented. Tansferred to table in Supine position. 9:12:51 Warm blankets applied, and puja hugger turned on for patient comfort. 9:12:51 Correct patient and procedure confirmed by team. 9:12:53 Signed procedure consent form obtained from patient. 9:12:54 ECG and BP/O2 sat monitors applied to patient. 9:12:54 Vital chart was started 9:12:56 Baseline sample Acquired. 9:13:06 Full Disclosure recording started 9:13:10 H&P Date Dictated: 01/11/2019 New H&P dictated by physician.. 9:13:11 Pre-procedure instructions explained to patient. 9:13:12 Pre-op teaching completed and patient verbalized understanding. 9:13:13 Family in waiting room. 9:13:14 Patient NPO since Midnight. 9:13:16 Is the patient allergic to Iodine/contrast media? No. 9:13:17 Was the patient premedicated? No 9:13:18 Is patient on blood thinner?No 9:13:19 Patient diabetic? No. 9:13:22 Previous problem with sedation/anesthesia? No ? 9:13:24 Snore? No 9:13:24 Sleep apnea? No 9:13:25 Deviated septum? No 9:13:28 Opens mouth fully? Yes 9:13:29 Sticks out tongue? Yes 9:13:31 Airway obstruction? No ? 9:13:34 Dentures? No ? 9:13:37 Pre procedure: right dorsailis pedis pulse 2+ Normal; easily identifiable; not easily obliterated 9:13:43 Patient pain scale 0/10 ?. 9:13:55 IV patent on arrival in left hand with 0.9% NaCl at KVO. 9:13:57 Lab results completed and on chart. 9:14:00 Right Radial & Right Groin area was prepped with chlora-prep and draped in sterile fashion 9:14:01 Alarms reviewed by R. N. 9:14:01 Sharps counted by scrub and verified by R.N. 9:21:20 --------ALL STOP TIME OUT------ 9:21:21 Final Timeout: patient, procedure, and site verified with staff and physician. All members of the team are in agreement. 9:21:23 Upon picking pt up from room 2119, this nurse obtained permission for friend Gertrude to take possession of ring that was on rt hand. Silver and yellow colored wide band with large clear stone. Also noted blood at lip and pt states was from her fall that brought her into the hospital. 9:21:32 Right Radial & Right Groin site verified by team. 9:21:37 Maximum allowable Isovue 370 dose 300ml. Physician notified. (300ml for normal creatinines. For patients with creatinine of 1.7 or higher multiply weight(kg) x 5 divided by creatinine.) 9:21:46 Oxygen 2 l/min etCO2 Nasal cannula was administered by Patt Land RN; used for procedure; 9:21:47 Fire Safety Assessment: A--An alcohol-based skin anteseptic being used preoperatively., C--Open oxygen or nitrous oxide is being used., D--An ESU, laser, or fiber-optic light is being used. 9:21:50 Physical assessment completed. ASA score P 2 - A patient with mild systemic disease as per Donald Vinson MD. 9::53 Lidocaine 2% 20ml vial added to field was administered by Donald Vinson MD; for local anesthetic; 9::53 Sedation plan: IV Moderate Sedation Medication:Versed, Fentanyl 9:21:59 Heparin Flush Bag (1000units/500ml NS) 2 bags added to field was administered by Donald Vinson MD; used for procedure; 9:22:06 Radial Cocktail (Verapamil 2mg/Nitro 400mcg/Heparin 1500units) 1 syringe added to field was administered by Donald Vinson MD; for vasodilation; 9:22:16 0.9% NaCl 100 ml/hr I.V. was administered by Patt Land RN; Per physician; 9:23:32 Versed 1 mg I.V. was administered by aPtt Land RN; for sedation; 9:23:38 Fentanyl 50 mcg I.V. was administered by Patt Land RN; for sedation; 9:27:27 Use device set Femoral Dx 9:27:30 Procedure started. 9:27:39 Local anesthetic to right femoral artery with Lidocaine 2% by Donald Vinson MD.INITIAL ACCESS ONLY 9:27:41 Tegaderm 4 x 4 (1626W) opened to sterile field. 9:27:42 ACIST Manifold (76420) opened to sterile field. 9:27:43 ACIST Hand Control (91100) opened to sterile field. 9:27:44 ACIST Syringe (55039) opened to sterile field. 9:27:44 Bag Decanter (2002) opened to sterile field. 9:27:44 Medline Cath Pack ([id number]) opened to sterile field. 9:27:47 SHEATH 5FR [place] (NJI085) opened to sterile field. 9:27:48 DIAGNOSTIC Multipack 5Fr catheter set (UQ8166) opened to sterile field. 9:27:49 DIAGNOSTIC WIRE .035 260cm J wire (453743) opened to sterile field. 9:28:04 A 5 Fr sheath was inserted into the Right Femoral artery 9:28:19 Procedure type changed to Cath procedure, Diagnostic procedure, LHC, LHC w/Coronaries, PCI procedure, Coronary Stent, Coronary Stent Initial, Peripheral Cath Diagnostic Procedure, Rice Farmer Peripheral Procedures, Four Vessel Arteriogram 9:29:11 A MULTIPACK 3DRC 5Fr catheter was advanced over the wire and used for Procedure. 9:30:01 Baseline sample Acquired. 9:30:06 Rhythm: sinus rhythm 9:31:36 Versed 0.5 mg I.V. was administered by Patt Land RN; for sedation; 9:32:29 Catheter removed. unable to cannulate vessel. 9:32:49 SHEATH 6FR ARROW 45cm (CL-36395) opened to sterile field. 9:32:57 SHEATH 6FR [place] (MQF785) opened to sterile field. 9:33:32 Sheath upsized to a 6 Fr Long. 9:35:23 A MULTIPACK JL 4.0 5Fr catheter was advanced over the wire and used for Procedure. 9:35:31 LCA angiography performed. 9:37:23 Catheter exchanged over wire. 9:37:36 A MULTIPACK 3DRC 5Fr catheter was advanced over the wire and used for Procedure. 9:38:01 RCA angiography performed. 9:39:49 Left carotid angiography performed. 9:41:58 Catheter exchanged over wire. 9:42:03 A DIAGNOSTIC MPA-2 5Fr catheter ([id number]) was advanced over the wire and used for Procedure. 9:43:46 Use device set [place] PCI 9:43:53 WHISPER 300cm guide wire ([id number]) opened to sterile field. 9:43:55 INFLATOR Merit BasixCompak (OP9004) opened to sterile field. 9:44:32 Right subclavian angiography performed 9:44:40 Catheter exchanged over wire. 9:44:43 GUIDE 6FR EBU 3.5 catheter (OH8PIO32) opened to sterile field. 9:45:56 A MULTIPACK Pigtail 5 Fr catheter was advanced over the wire and used for Procedure. 9:46:31 LV angiography performed. 9:46:33 LV gram done using SMITH 9:46:38 EF : 55 % 9:46:41 LV hemodynamics recorded. 9:46:43 Injector settings: Ml/sec: 10, Volume: 20, 9:46:52 Catheter exchanged over wire. 9:47:02 Pre PCI Site: [place] OM1 has 80% stenosis. 9:47:14 6 Fr EBU 3.5 guide catheter was inserted over the wire 9:48:05 Whisper wire advanced. 9:48:22 Heparin Bolus 4000 units I.V. was administered by Patt Land RN; for anticoagulation; verified with dr saldivar 9:49:49 Integrilin (Bolus 2mg/ml) 6.2 ml I.V. was administered by Patt Land RN; for antiplatelet therapy; wasted 3.8 ml of vial 9:51:05 Wire advanced across lesion. 9:52:27 Place stent Inflation Number: 1 A COBRA RX 3.0 X 15 Stent was prepped and advanced across the 1st Ob Jenae 80. The stent was deployed at 14 MAR for 0:30 (min:sec) 0. 9:52:58 EXOSEAL 6Fr (EX600) opened to sterile field. 9:53:02 Stent catheter was removed intact over wire. 9:53:03 Wire removed. 9:53:03 Guide catheter removed. 9:54:46 Sheath upsized to a 6 Fr Short. 9:54:51 Sheath removed intact; hemostasis achieved with Exoseal to the Right Femoral artery. 9:54:53 Procedure ended.(Physican Out) 9:55:02 Plavix 600 mg P.O. was administered by Patt Land RN; for antiplatelet therapy; 9:55:12 Fluoroscopy time 09.30 minutes. 9:55:18 Fluoroscopy dose: 896 mGy 9:55:18 Flurop Dose total: 896 9:55:23 Contrast amount:Isovue 370 132ml. 9:55:26 Sharps counted by scrub and verified by R.N. 9:55:27 Insertion/operative site no bleeding no hematoma. 9:55:30 Post-op/insertion site Right Femoral artery dressed using a 4 x 4 and Tegaderm. 9:55:32 Post Procedure Pulses reassessed and unchanged 9:55:34 Post-procedure physical assessment completed. ASA score P 2 - A patient with mild systemic disease as per Donald Vinson MD. 9:55:36 Post procedure rhythm: unchanged. 9:55:39 Estimated blood loss: 10 ml 9:55:40 Post procedure instruction explained to patient.Patient verbalizes understanding. 9:55:41 Patient needs reinforcement of post procedure teaching. 9:58:13 Procedure and supply charges have been captured, reviewed, submitted and are correct. 9:58:16 Procedure Complication : No complications 9:58:33 Vital chart was stopped 9:58:33 See physician's report for complete and final results. 9:58:45 Report given to PCU. 9:58:51 Patient transfered to PCU with Bed. 10:00:30 Procedure ended. 10:00:30 Full Disclosure recording stopped 10:00:41 End room use (Document Last) Intervention Summary Intervention Notes Time ActionType Lesion and Equipment Action# Pressure Duration Attributes Used 9:52:27 Place stent 1st Ob Jenae COBRA RX 1 14 00:30 3.0 X 15 Stent Device Usage Item Name Manufacture Quantity Catalog Hospital Part Current Minimal Lot# / Number Charge Number Stock Stock Serial# Code Tegaderm 4 x 4 3M 1 1626W 335113 817161 863664 5 (1626W) ACIST Manifold Acist 1 88740 190378 015484 538579 5 (82859) Medical Systems Inc ACIST Hand Acist 1 13628 807020 663928 102576 5 Control Medical (02629) Systems Inc ACIST Syringe Acist 1 72515 152953 522851 402335 20 (70270) Medical Systems Inc Bag Decanter Microtek 1 2002S 065924 83695 131113 5 (2002S) Medical Inc. Medline Cath Medline 1 [id number] 511986 09288 578642 5 Pack ([id number]) SHEATH 5FR Terumo 1 MPR796 618558 289371 420549 5 [place] (EOM603) DIAGNOSTIC Cardinal 1 BX9833 806845 93591 552695 30 Multipack 5Fr Health catheter set (VI8133) DIAGNOSTIC St Eric 1 739976 646249 201376 659716 30 WIRE .035 260cm J wire (163790) MULTIPACK 3DRC Cardinal 1 352057 5 5Fr catheter Health SHEATH 6FR Teleflex 1 CL-58988 995528 709145 160508 5 ARROW 45cm (CL-35771) SHEATH 6FR Terumo 1 CKR649 857857 864570 226859 40 [place] (NUV863) MULTIPACK JL Cardinal 1 055746 5 4.0 5Fr Health catheter DIAGNOSTIC Cardinal 1 [id number] 219743 172273 245351 5 MPA-2 5Fr Health catheter (419489J) WHISPER 300cm Andersen 1 [id number] 491930 175866 270174 5 guide wire Vascular (5865645AM) INFLATOR Merit Merit 1 AD9431 477298 465329 369772 15 [facility] Medical (SK4955) GUIDE 6FR EBU Medtronic 1 [id number] 395063 05112 495255 3 3.5 catheter ([id number]) MULTIPACK Cardinal 1 047452 5 Pigtail 5 Fr Health catheter COBRA RX 3.0 X Celonova 1 060-15-46217 545971 295709678 583584 5 [id number] 15 stent Biosciences ([id number]) EXOSEAL 6Fr Cardinal 1 EX600 705708 955517 988498 10 (EX600) Health Signature Audit [place] Stage Time Signature Unsigned Intra-Procedure 01/11/2019 Michael Card 10:01:42 AM RT(R) Signatures Monitor : Michael Card RT Signature : Date : Time : [id number] [place] [address]
[~2019-01-10 10:47] MED LIST changes: +COZAAR50 MG PO; +CYMBALTA60 MG PO; +EC-NAPROSYN500 MG PO; +MOBIC7.5 MG PO; +ROBAXIN500 MG PO
[2019-01-10 11:26] LABS: BASOPHILS 0.5 % (0-2); EOSINOPHILS 3.5 % (0-7); HEMATOCRIT 38.2 % (36.0-48.0); IMMATURE GRANULOCYTES 0.2 % (0-5); LYMPHOCYTES 24.2 % (15-50); MCH 30.9 pg (26.0-34.0); MCV 90.7 fL (80.0-100.0); MEAN PLATELET VOLUME 8.8 fL (7.4-10.4); MONOCYTES 9.4 % (2-11); NEUTROPHILS 62.2 % (40-80); PLATELET COUNT 198 10x3/uL (130-400); RBC 4.21 10x6/uL (4.00-5.40); RDW 14.3 % (11.5-14.5); WBC 4.3 10x3/uL (4.8-10.8)
[2019-01-10 11:37] VITALS: BP 155/87
--- NOTE | 2019-01-10 11:37 | NUR ---
DENIES CP AT THIS TIME
[2019-01-10 11:41] LABS: ALBUMIN 3.1 g/dL (3.4-5.0); ALKALINE PHOSPHATASE 109 U/L (46-116); ALT (SGPT) 26 U/L (10-68); BILIRUBIN - TOTAL 0.36 mg/dL (0.2-1.3); CALC OSMOLALITY 277 mosm/kg (275-300); CALCIUM 8.9 mg/dL (8.5-10.1); CARBON DIOXIDE 31.8 mmol/L (21.0-32.0); CHLORIDE - SERUM 103 mmol/L (98-107); CREATININE - SERUM 0.6 mg/dL (0.6-1.3); GLUCOSE 89 mg/dL (74-106); POTASSIUM - SERUM 3.4 mmol/L (3.5-5.1); PROTEIN - SERUM 6.8 g/dL (6.4-8.2); SODIUM 139 mmol/L (136-145); UREA NITROGEN 15 mg/dL (7-18); eGFR NON AFRICAN AMERICAN > 90 mL/min (90-120)
[2019-01-10 11:42] LABS: APTT 28.8 SECONDS (22.8-39.4); INR 0.96 (0.85-1.17); PROTIME 12.3 SECONDS (11.6-15.0)
[2019-01-10 11:53] LABS: CKMB 1.3 U/L (0.0-3.6); CREATINE KINASE 77 UL (21-215); MAGNESIUM - SERUM 1.9 mg/dL (1.8-2.4); TROPONIN-I < 0.017 ng/mL (0.000-0.060)
[2019-01-10 12:33] VITALS: BP 158/84
[2019-01-10 13:00] VITALS: BP 155/87
--- NOTE | 2019-01-10 13:02 | NUR ---
C/O "A LITTLE BIT OF LEFT CP" 2ND NITRO ADMIN
--- NOTE | 2019-01-10 13:39 | NUR ---
PT AAOX4 - PT REQUEST CUP OF COFFEE AND A STAND BY ASSIST TO GO TO THE BATHROOM.
--- NOTE | 2019-01-10 14:30 | NUR ---
PT RECIEVED PER ANITA. REPORT RECIEVED FROM RAVEN GAR. ADMIT ASSESSMENT PER RN.
[2019-01-10 18:36] LABS: CKMB 1.6 U/L (0.0-3.6); CREATINE KINASE 72 UL (21-215)
[2019-01-10 18:42] LABS: TROPONIN-I < 0.017 ng/mL (0.000-0.060)
--- NOTE | 2019-01-10 19:30 | NUR ---
RESUMING PATIENT CARE. PATIENT IS ALERT AND ORIENTED, RESTING COMFORTABLY IN BED. RESPIRATIONS ARE EVEN AND UNLABORED. NO S/S OF DISTRESS. NO C/O PAIN. NEEDS MET. CALL LIGHT WITHIN REACH. WILL CPOC.
[2019-01-10 20:00] VITALS: BP 140/71
[2019-01-11 00:47] LABS: CKMB 1.3 U/L (0.0-3.6); CREATINE KINASE 59 UL (21-215); TROPONIN-I < 0.017 ng/mL (0.000-0.060)
[2019-01-11 02:33] LABS: BASOPHILS 0.4 % (0-2); EOSINOPHILS 4.5 % (0-7); HEMATOCRIT 37.7 % (36.0-48.0); HEMOGLOBIN 12.5 g/dL (12-16); IMMATURE GRANULOCYTES 0.6 % (0-5); LYMPHOCYTES 32.3 % (15-50); MCH 30.3 pg (26.0-34.0); MCHC 33.2 g/dL (31.0-37.0); MCV 91.3 fL (80.0-100.0); MEAN PLATELET VOLUME 8.7 fL (7.4-10.4); MONOCYTES 9.9 % (2-11); NEUTROPHILS 52.3 % (40-80); PLATELET COUNT 187 10x3/uL (130-400); RBC 4.13 10x6/uL (4.00-5.40); RDW 14.2 % (11.5-14.5); WBC 4.7 10x3/uL (4.8-10.8)
--- NOTE | 2019-01-11 02:34 | NUR ---
CALLED AND SPOKE TO DR SYLVESTER. DOCTOR ONCROBBIE. READ BACK ORDER TO VERIFY TYLENOL 3 ONE TAB Q6H PRN FOR PAIN. AND NEUROTIN 300MG TID
[2019-01-11 02:56] LABS: CALC OSMOLALITY 282 mosm/kg (275-300); CALCIUM 9.2 mg/dL (8.5-10.1); CARBON DIOXIDE 29.8 mmol/L (21.0-32.0); CHLORIDE - SERUM 104 mmol/L (98-107); CKMB 1.4 U/L (0.0-3.6); CREATINE KINASE 66 UL (21-215); CREATININE - SERUM 0.5 mg/dL (0.6-1.3); GLUCOSE 97 mg/dL (74-106); SODIUM 141 mmol/L (136-145); UREA NITROGEN 17 mg/dL (7-18); eGFR NON AFRICAN AMERICAN > 90 mL/min (90-120)
[2019-01-11 02:57] LABS: TROPONIN-I < 0.017 ng/mL (0.000-0.060)
[2019-01-11 03:02] VITALS: BP 148/75; Ht 167.6 cm; Wt 65.9 kg
[2019-01-11 04:00] VITALS: BP 142/62
--- NOTE | 2019-01-11 07:22 | NUR ---
REPORT RECEIVED. WILL CONTINUE WITH POC. PT CURRENTLY LYING SEMI FOWLERS. CALL LIGHT W/I REACH. PT IS RESTING AT THE MOMENT. RR EVEN AND UNLABORED ON RA. L.HAND PIV IS SALINE LOCKED. NO S/S OF DISTRESS NOTED. PT DENIES ANY NEEDS AT THIS TIME. PT IS NPO FOR HEART CATH THIS AM. WILL CTM.
--- NOTE | 2019-01-11 09:02 | NUR ---
PREVIOUS PIV INFILTRATED. STARTED NEW PIV TO THE LEFT FOREARM 20GA X1 ATTEMPT. PT TOLERATED WELL. FLUSHED WITH 10CC NS TO CONFIRM PATENCY. INFORMATION CLERK CALLED TO PREOP. AM MEDICATIONS ADMINISTERED. PREOP MEDICATIONS ADMINISTERED. PT CURRENTLY BEING TRANSFERED TO INFORMATION CLERK. WILL CTM.
[2019-01-11 09:18] VITALS: BP 158/79
--- NOTE | 2019-01-11 10:37 | NUR ---
PT RETURNED FROM ELECTRONIC LAB TECHNICIAN. PT IS AAO AND WILL LIE FLAT FOR APPROPRIATE AMOUNT OF TIME. RIGHT FEM CATH SITE IS C/D/I WITH NO S/S OF HEMATOMA. PERIPHERAL PULSES EVEN AND BILATERAL. NS INFUSING @200ML/HR VIA L.FOR PIV. FAMILY AT BEDSIDE. PT DENIES ANY NEEDS AT THIS TIME. WILL CTM.
--- NOTE | 2019-01-11 11:12 | CN ---
PATIENT NAME:KENAN DELEON MEDICAL RECORD: [id number] : 36 LOCATION:D. D.2119 ADMIT DATE: 01/10/19 ACCOUNT: [id number] CONSULTING PHYSICIAN: PEPE ANGEL MD REFERRING PHYSICIAN: YVONNE ALVA MD DATE OF CONSULTATION: 01/10/2019 HISTORY OF PRESENT ILLNESS: An 78-year-old female, is followed by Dr. Montalvo for a history of cardiac arrhythmias as well as hypertension. Admitted recently with TIA-type symptomatology, visual changes bilateral eyes, not classic amaurosis right greater than left, was discharged home. Today began having chest pressure and tightness, rest symptomatology. We are asked to see her concerning her cardiovascular status. PAST MEDICAL HISTORY: Includes, 1. History of hypertension. 2. Cardiac arrhythmias, followed by Dr. Montalvo. MEDICATIONS: Include losartan 50 mg p.o. every day, metoprolol 12.5 b.i.d., Abilify 2 mg p.o. at bedtime, Cymbalta 60 every day, Neurontin 300 mg t.i.d., Mobic 7.5 b.i.d., Zoloft 100 every day, Lasix 40 every day, Pepcid 20 a.c. ALLERGIES: PENICILLIN, SULFA, OXYCODONE, THORAZINE, AND STELAZINE. SOCIAL HISTORY: Nonsmoker. No set exercise program. She is able to take care of ADLs. REVIEW OF SYSTEMS: The patient reports easy bruising but reports no swollen glands. The patient reports no fever, no night sweats, no significant weight gain, no significant weight loss. No significant exercise tolerance. The patient reports no dry eyes, no irritation, no vision change. Patient reports no difficulty hearing and no ear pain. Patient reports no frequent nose bleeds or nose and sinus problems. Patient reports on arm pain on exertion. No shortness of breath while lying down. No history of heart murmur. Patient reports no cough, no wheezing or coughing up blood. Patient reports no abdominal pain, no vomiting. Normal appetite. No diarrhea and not vomiting blood. No nausea and no constipation. Patient reports no incontinence. No difficulty urinating. No hematuria. No increased frequency. Patient reports no muscle aches. No weakness, no arthralgias, no back pain. No swelling of the extremities. Patient reports no abnormal mole, no jaundice, no rashes. Reports no loss of consciousness. No weakness and no numbness. No seizures, dizziness, or headaches. The patient reports no depression, no sleep disturbance, feeling safe in a relationship and no alcohol abuse. Patient reports on fatigue. Reports no runny nose or sinus pressure. No itching, no hives, and no frequent sneezing. PHYSICAL EXAMINATION: GENERAL: Pleasant female in no acute distress, appears stated age. VITAL SIGNS: 155/87, pulse 97 and regular. HEENT: Normocephalic, atraumatic. NECK: No JVD or bruit. HEART: Regular, S4 gallop. LUNGS: Good excursion. ABDOMEN: Soft, nontender. EXTREMITIES: Pulses 2+. No edema. CONSULT REPORT [id number] KENAN DELEON IMPRESSION: Transient ischemic attack type symptomatology, recurrent as well as acute coronary syndrome, does have a history of cardiac arrhythmias with visual changes, right greater than left and amaurosis type symptomatology. PLAN: For diagnostic angiography, followed by 4-vessel arteriography at the same setting. TRANSINT:[id number] Voice Confirmation ID: [id number] DOCUMENT ID: [id number] PEPE ANGEL MD at 1112 CC: [id number] DICTATION DATE: 01/10/19 1611 FURNITURE CRATER: 01/10/19 2308 ADM IN [id number] [place] [address]
[2019-01-11] MEDS ORDERED: PLAVIX75 MG PO (13:51)
[2019-01-11] MEDS ORDERED: MACROBID100 MG PO (13:51)
[2019-01-11] MEDS ORDERED: BAYER CHEWABLE81 MG PO (14:53)
--- NOTE | 2019-01-11 15:13 | NUR ---
PT ASSISTED TO AND FROM TOILET WHERE PT HAD EPISODE OF URINARY INCONTINENCE. PT CLEANED AND NEW LINEN APPLIED. TELEMETRY REMOVED AND RETURNED R/T DISCHARGE. NO S/S OF HEMATOMA PRESENT IN RIGHT FEM. FAMILY AT BEDSIDE. PT DENIES ANY NEEDS. WILL CTM.
--- NOTE | 2019-01-11 16:07 | MORECARE ---
CASE MANAGEMENT DISCHARGE SUMMARY PATIENT: KENAN DELEON UNIT: [id number] ADM DATE: 01/10/19 AGE: 78 : 38 SEX: F ROOM/BED: D.2680 AUTHOR: THOMAS,DOC PHYSICIAN: REFERRING PHYSICIAN: YVONNE ALVA MD DATE OF SERVICE: 01/11/19 Discharge Plan Patient Name: KENAN DELEON Facility: [facility]:[place] : 1940 Planned Disposition: Home with Home Health Anticipated Discharge Date: 01/11/19 Discharge Date: Expected LOS: 1 Initial Reviewer: [email or web address] Initial Review Date: 01/11/2019 Generated: 01/11/19 5:07 pm Comments DCP- Discharge Planning Updated by [id number]: Tyron Frias on 01/11/19 3:[address] Patient Name: KENAN DELEON Admission Status: ER Accout number: [id number] Admission Date: 01-10-2019 : 1940 Admission Diagnosis: Attending: YVONNE ALVA Current LOS: 1 Anticipated DC Date: 01-11-2019 Planned Disposition: Home with Home Health Primary Insurance: [facility] MEDICARE SOLUTIONS PLANNED EXTERNAL PROVIDER: [facility] Discharge Planning Comments: CM RECEIVED DISCHARGE ORDER WITH HOME HEALTH ORDER. CM MET WITH PT IN ROOM TO DISCUSS DISCHARGE PLANNING AND NEEDS. PT REPORTS LIVING AT HOME INDEPENDENTLY AND ALONE. PT HAS CANE AND WALKER WITH NO MEDICAL EQUIPMENT PROVIDER PREFERENCE. PT HAS HOME HEALTH WITH [facility] BUT DID NOT LET THEM ADMIT HER BECAUSE SHE HAS COPAY TO MEET AND DID NOT WANT TO PAY IT. PT WILL NOW ALLOW [facility] TO COME AND SEE HER BUT WANTS TO CALL HER INSURANCE TO SEE HOW MUCH, IF ANYTHING, SHE HAS TO PAY. CM CALLED [facility], , SPOKE TO NORAH WHO EXPLAINED PT HAD NOT YET MET DEDUCTIBLE FOR THE YEAR AND HAD A 15% COPAY ON SERVICES, PT WOULD HAVE TO CONTACT HER INSURANCE TO KNOW IF SHE HAS ANY COPAYS AT THIS TIME. [facility] WILL ACCEPT PT BACK. PT SIGNED CHOICE FOR [facility]. CM DISCUSSED AVAILABILITY OF REHAB SERVICES AND MEDICAL EQUIPMENT. PT DENIES FURTHER DISCHARGE NEEDS, REPORTS HER FRIEND IS HERE AND WILL PICK HER UP FOR DISCHARGE HOME. CM CALLED [facility], , SPOKE TO NORAH, REFERRAL PROVIDED, PT PLACED ON SCHEDULE FOR TOMORROW. CM FAXED REFERRAL AND DISCHARGE INFORMATION TO [facility] AT [phone]. [employer] ASSEMBLER NURSE NOTIFIED. Lab Head: Tyron Frias DCPIA - Discharge Planning Initial Assessment Updated by [id number]: Tyron Frias on 01/11/19 4:02 pm * Is the patient Alert and Oriented? Yes * How many steps to enter\exit or inside your home? 14 * PCP DR ALVA * Pharmacy [facility] * Preadmission Environment Home Alone * ADLs Independent * Equipment Cane Walker * Other Equipment NO MEDICAL EQUIPMENT PROVIDER PREFERENCE * List name and contact numbers for known caregivers / representatives who currently or will assist patient after discharge: DAPHNE WALKER, SON, * Verbal permission to speak to the caregivers and representatives has been obtained from the patient. N/A * Community resources currently utilized Home Health * Please name any agencies selected above. [facility] * Additional services required to return to the preadmission environment? No * Can the patient safely return to the preadmission environment? Yes * Has this patient been hospitalized within the prior 30 days at any hospital? No Coverage Notice Reviewer: [id number] - Tyron Frias Notice Issued Date-Time: 01/11/2019 15:40 Notice Type: Patient Choice Letter Notice Delivered To: Patient Relationship to Patient: Application Development Liaison Name: Delivery Method: HAND - Hand Delivered Jenna Days: Prior Verbal Notification: Recipient Understood Notice: Yes Recipient Signature: Yes Med Rec Note Co-signed by Attending: Coverage Notice Comment: [facility] Patient Name: KENAN DELEON Page [phone] at 1607 All edits/amendments must be made on the electronic document DICTATION DATE: 01/11/19 1606 MARGIN ANALYST: MARY ANNE 01/11/19 160 RPT#: [id number] [place] DATE: STATUS: ADM IN [facility] [address] [place] [address] END OF REPORT
--- NOTE | 2019-01-11 16:17 | MORECARE ---
CASE MANAGEMENT DISCHARGE SUMMARY PATIENT: KENAN DELEON UNIT: [id number] ADM DATE: 01/10/19 AGE: 78 : 38 SEX: F ROOM/BED: D.1099 AUTHOR: THOMAS,DOC PHYSICIAN: REFERRING PHYSICIAN: YVONNE ALVA MD DATE OF SERVICE: 01/11/19 Discharge Plan Patient Name: KENAN DELEON Facility: [facility]:[place] : 1940 Planned Disposition: Home with Home Health Anticipated Discharge Date: 01/11/19 Discharge Date: Expected LOS: 1 Initial Reviewer: [email or web address] Initial Review Date: 01/11/2019 Generated: 01/11/19 5:17 pm Comments DCP- Discharge Planning Updated by [email or web address]: Tyron Frias on 01/11/19 3:[address] Patient Name: KENAN DELEON Admission Status: ER Accout number: [id number] Admission Date: 01-10-2019 : 1940 Admission Diagnosis: Attending: YVONNE ALVA Current LOS: 1 Anticipated DC Date: 01-11-2019 Planned Disposition: Home with Home Health Primary Insurance: [facility] MEDICARE SOLUTIONS PLANNED EXTERNAL PROVIDER: [facility] Discharge Planning Comments: CM RECEIVED DISCHARGE ORDER WITH HOME HEALTH ORDER. CM MET WITH PT IN ROOM TO DISCUSS DISCHARGE PLANNING AND NEEDS. PT REPORTS LIVING AT HOME INDEPENDENTLY AND ALONE. PT HAS CANE AND WALKER WITH NO MEDICAL EQUIPMENT PROVIDER PREFERENCE. PT HAS HOME HEALTH WITH [facility] BUT DID NOT LET THEM ADMIT HER BECAUSE SHE HAS COPAY TO MEET AND DID NOT WANT TO PAY IT. PT WILL NOW ALLOW [facility] TO COME AND SEE HER BUT WANTS TO CALL HER INSURANCE TO SEE HOW MUCH, IF ANYTHING, SHE HAS TO PAY. CM CALLED [facility], , SPOKE TO NORAH WHO EXPLAINED PT HAD NOT YET MET DEDUCTIBLE FOR THE YEAR AND HAD A 15% COPAY ON SERVICES, PT WOULD HAVE TO CONTACT HER INSURANCE TO KNOW IF SHE HAS ANY COPAYS AT THIS TIME. [facility] WILL ACCEPT PT BACK. PT SIGNED CHOICE FOR [facility]. CM DISCUSSED AVAILABILITY OF REHAB SERVICES AND MEDICAL EQUIPMENT. PT DENIES FURTHER DISCHARGE NEEDS, REPORTS HER FRIEND IS HERE AND WILL PICK HER UP FOR DISCHARGE HOME. CM CALLED [facility], , SPOKE TO NORAH, REFERRAL PROVIDED, PT PLACED ON SCHEDULE FOR TOMORROW. CM FAXED REFERRAL AND DISCHARGE INFORMATION TO [facility] AT [phone]. [employer] OPERATOR NURSE NOTIFIED. Sheriffs: Tyron Frias DCPIA - Discharge Planning Initial Assessment Updated by [id number]: Tyron Frias on 01/11/19 4:02 pm * Is the patient Alert and Oriented? Yes * How many steps to enter\exit or inside your home? 14 * PCP DR ALVA * Pharmacy [facility] * Preadmission Environment Home Alone * ADLs Independent * Equipment Cane Walker * Other Equipment NO MEDICAL EQUIPMENT PROVIDER PREFERENCE * List name and contact numbers for known caregivers / representatives who currently or will assist patient after discharge: DAPHNE WALKER, SON, * Verbal permission to speak to the caregivers and representatives has been obtained from the patient. N/A * Community resources currently utilized Home Health * Please name any agencies selected above. [facility] * Additional services required to return to the preadmission environment? No * Can the patient safely return to the preadmission environment? Yes * Has this patient been hospitalized within the prior 30 days at any hospital? No External [facility]iders [facility] Next Contact Date: 01/11/2019 Service Request Date: Service Type: Resolution: Reviewer: Comments: Coverage Notice Reviewer: [id number] - Tyron Rodriguez Notice Issued Date-Time: 01/11/2019 15:40 Notice Type: Patient Choice Letter Notice Delivered To: Patient Relationship to Patient: Founding Partner Name: Delivery Method: HAND - Hand Delivered Jenna Days: Prior Verbal Notification: Recipient Understood Notice: Yes Recipient Signature: Yes Med Rec Note Co-signed by Attending: Coverage Notice Comment: [facility] Last DP export: 01/11/19 3:07 pm Patient Name: KENAN DELEON Page [phone] at 1617 All edits/amendments must be made on the electronic document DICTATION DATE: 01/11/191615 BUILDER BEAM: MARY ANNE 01/11/191615 RPT#: [id number] MD DATE: STATUS: ADM IN [facility] [address] [place] [address] END OF REPORT
--- NOTE | 2019-01-11 16:53 | NUR ---
PT DISCHARGED HOME VIA WHEELCHAIR WITH FAMILY. PIV REMOVED WITH CATHETER TIP FULLY INTACT. TELEMETRY REMOVED AND RETURNED. PT SIGNED DISCHARGE INSTRUCTION AND REMOVED ALL VALUABLES FROM THE ROOM.
--- NOTE | 2019-01-14 09:55 | OP ---
PATIENT NAME: KENAN DELEON MEDICAL RECORD: [id number] :36 LOCATION:D.M2 D.2119 ADMISSION DATE:01/10/19 SURGEON: PEPE ANGEL MD DATE OF OPERATION: 01/11/2019 PROCEDURE: Left heart cath, 4-vessel arteriography, and stenting to the OM. Right femoral artery approach. We were forced to use a long sheath due to tortuosity of the iliacs. FINDINGS: A 4-vessel arteriography was performed secondary to recent admission for a TIA symptomatology and then amaurosis type symptomatology this admission. 1. Right common carotid, smooth-walled vessel, free of disease. 2. Right external carotid is very tortuous, but free of disease. 3. Left internal carotid is free of disease. 4. The left external carotid was selectively engaged. This shows a highly tortuous left common carotid, but with no evidence of significant atherosclerotic disease. Left external carotid shows some wall disease, but nothing greater than 20%. Left internal carotid is smooth-walled vessel. Left heart catheterization was performed. FINDINGS: Left ventriculography in 30-degree SMITH view: Normal wall motion and normal systolic function. CORONARY ANATOMY: LEFT MAIN: Free of disease. LAD: Free of disease in the diagonal system. 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 RIGHT CORONARY ARTERY: Somewhat of a codominant system, free of disease. IMPRESSION: Plan intervention of the OM momentarily. DESCRIPTION OF PROCEDURE: Using an indwelling long 6-Wallisian sheath, an EBU 3.5 guiding catheter provided excellent guide catheter support followed by a 300 cm Whisper wire, which was placed across the tightly occluded OM down this portion of the vessel. Stent deployed was a 3.0 x 50 mm Cobra stent up to 14 atmospheres shows excellent resolution of 80% stenosis, no significant residual. SCOTT flow was 3 throughout the procedure. Integrilin and heparin were both used during the case. Plavix was loaded in the lab. TRANSINT:[id number] Voice Confirmation ID: [id number] DOCUMENT ID: [id number] PEPE ANGEL MD at 0955 CC: [id number] DICTATION DATE: 01/11/19 1003 STRIP CLEANER: 01/11/19 1157 DIS IN 01/11/19 [facility] [address] [facility] [place] [address]
== END 2019-01-11 16:55 | disposition home or self-care (01) ==
LOC: D.ER 10:47 → OBSVTIME 13:47 → D.M2 13:47
PROVIDERS: Emergency Medicine; ADMIT Family Medicine; ATTEND Family Medicine
DX: I25.119 Atherosclerotic heart disease of native coronary artery with unspecified angina pectoris (principal); D64.9 Anemia, unspecified; N39.0 Urinary tract infection, site not specified

== ENCOUNTER 2019-02-23 02:23 | Emergency (ER) | payer MEDICARE ==
[~2019-02-23] VITALS: Ht 167.6 cm; Wt 67.3 kg
[~2019-02-23 02:23] MED LIST changes: +BAYER CHEWABLE81 MG PO; +MACROBID100 MG PO; +PLAVIX75 MG PO
[2019-02-23 02:29] VITALS: Ht 167.6 cm; Wt 67.3 kg
[2019-02-23 02:48] LABS: BASOPHILS 0.3 % (0-2); EOSINOPHILS 4.2 % (0-7); HEMATOCRIT 37.5 % (36.0-48.0); HEMOGLOBIN 12.4 g/dL (12-16); IMMATURE GRANULOCYTES 0.6 % (0-5); LYMPHOCYTES 28.6 % (15-50); MCH 30.6 pg (26.0-34.0); MCHC 33.1 g/dL (31.0-37.0); MCV 92.6 fL (80.0-100.0); MEAN PLATELET VOLUME 8.8 fL (7.4-10.4); MONOCYTES 10.5 % (2-11); NEUTROPHILS 55.8 % (40-80); PLATELET COUNT 179 10x3/uL (130-400); RBC 4.05 10x6/uL (4.00-5.40); RDW 13.5 % (11.5-14.5); WBC 6.3 10x3/uL (4.8-10.8)
[2019-02-23 02:56] LABS: INR 0.99 (0.85-1.17); PROTIME 12.6 SECONDS (11.6-15.0)
[2019-02-23 03:04] LABS: ALBUMIN 3.2 g/dL (3.4-5.0); ALKALINE PHOSPHATASE 112 U/L (46-116); ALT (SGPT) 23 U/L (10-68); BILIRUBIN - TOTAL 0.21 mg/dL (0.2-1.3); CALC OSMOLALITY 279 mosm/kg (275-300); CALCIUM 8.7 mg/dL (8.5-10.1); CARBON DIOXIDE 33.1 mmol/L (21.0-32.0); CHLORIDE - SERUM 103 mmol/L (98-107); CREATININE - SERUM 0.7 mg/dL (0.6-1.3); GLUCOSE 106 mg/dL (74-106); POTASSIUM - SERUM 3.6 mmol/L (3.5-5.1); PROTEIN - SERUM 6.9 g/dL (6.4-8.2); SODIUM 139 mmol/L (136-145); UREA NITROGEN 18 mg/dL (7-18); eGFR NON AFRICAN AMERICAN 85 mL/min (90-120)
== END 2019-02-23 05:20 | disposition home or self-care (01) ==
LOC: D.ER 02:23
PROVIDERS: Family Medicine
DX: T14.8XXA Other injury of unspecified body region, initial encounter (principal); X58.XXXA Exposure to other specified factors, initial encounter; Y93.89 Activity, other specified; Y92.89 Other specified places as the place of occurrence of the external cause

== ENCOUNTER → 2019-04-09 17:59 | Outpatient (CLI) | payer MEDICARE ==
[2019-02-23 02:29] VITALS: BMI 23.9
[2019-04-09 18:21] LABS: BASOPHILS 0.4 % (0-2); EOSINOPHILS 4.2 % (0-7); HEMATOCRIT 37.7 % (36.0-48.0); HEMOGLOBIN 12.3 g/dL (12-16); IMMATURE GRANULOCYTES 0.2 % (0-5); MCH 30.1 pg (26.0-34.0); MCHC 32.6 g/dL (31.0-37.0); MCV 92.2 fL (80.0-100.0); MEAN PLATELET VOLUME 9.3 fL (7.4-10.4); MONOCYTES 10.5 % (2-11); NEUTROPHILS 56.7 % (40-80); RBC 4.09 10x6/uL (4.00-5.40); RDW 13.6 % (11.5-14.5)
[2019-04-09 18:22] LABS: PLATELET COUNT 247 10x3/uL (130-400)
== END | disposition home or self-care (01) ==
LOC: D.LABREF 17:59
PROVIDERS: ATTEND Internal Medicine Cardiovascular Disease
DX: I10 Essential (primary) hypertension (principal); R58 Hemorrhage, not elsewhere classified